=== PATIENT | female | born 1955 | race Caucasian/White ===

== ENCOUNTER 2019-08-22 17:09 | Emergency (ER) | payer OTHER ==
--- OUTSIDE RECORDS SUMMARY | 2019-08-22 17:11 | XMS REPORT ---
:1955 Author Organization [facility] Address [address] [place] [address] [place] [address] Care Team Providers Name Role Phone Unavailable Unavailable Unavailable Problems This patient has no known problems. Allergies, Adverse Reactions, Alerts This patient has no known allergies or adverse reactions. Medications This patient has no known medications.
--- OUTSIDE RECORDS SUMMARY | 2019-08-22 17:12 | XMS REPORT | Summary of Care ---
:1955 Author Organization [facility] Address [address] [place] [address] Care Team Providers Name Role Phone Arina Mckeon Primary Care Provider Encounter Details Date Type Department Care Team Description 05/18/2019 Orders Only [facility] Doctor Unassigned, No [address] [facility] [place] [address] [address] [place] [address] Allergies Active Allergy Reactions Severity Noted Date Comments Morphine Other - See comments 02/10/2016 Penicillins Rash 02/10/2016 Sulfa (Sulfonamide Antibiotics) Other - See comments 12/08/2017 documented as of this encounter (statuses as of 05/18/2019) Medications Medication Sig Dispensed Refills Start Date End Date Status DEXILANT 60 mg capsule 1 2016 Active estradiol (ESTRACE) 2 Take 1 mg by 0 12/26/2015 Active mg tablet mouth daily. lancets (LITE TOUCH 3 12/16/2015 Active LANCETS) [facility] XOPENEX HFA 45 3 12/24/2015 Active mcg/actuation inhaler LORazepam (ATIVAN) 1 mg 1 01/29/2016 Active tablet traZODone (DESYREL) 150 Take 150 mg by 2 11/15/2015 Active mg tablet mouth at bedtime. aspirin 81 mg chewable Take 81 mg by 0 Active tablet mouth daily. loratadine (CLARITIN Take by mouth. 0 Active LIQUI-GEL) 10 mg capsule ERGOCALCIFEROL, VITAMIN Take by mouth. 0 Active D2, (VITAMIN D ORAL) linaclotide (LINZESS) Take by mouth. 0 Active 290 mcg Cap BACLOFEN ORAL Take by mouth. 0 Active levothyroxine Take one tablet 102 tablet 1 05/12/2016 Active (SYNTHROID) 50 mcg Tuesday-Tuesday tabletIndications: and 1.5 tablet Hypothyroidism, on tuesday unspecified hypothyroidism type OXYCODONE HCL Take by mouth. 0 Active (OXYCODONE ORAL) antipyrine-benzocaine Place 2 Drops in 1 Bottle 0 10/16/2016 Active 5.4-1.4 % otic drops left ear every 4 (four) hours as needed for Pain (scale 4-6). ondansetron (ZOFRAN Take 1 tablet by 12 tablet 0 12/08/2017 Active ODT) 4 mg mouth every 8 disintegrating tablet (eight) hours as needed for Nausea and Vomiting (N/V). documented as of this encounter (statuses as of 05/18/2019) Active Problems Problem Noted Date Obesity (BMI 30-39.9) 10/16/2016 Hypothyroidism, unspecified hypothyroidism type 02/10/2016 Pre-diabetes 02/10/2016 documented as of this encounter (statuses as of 05/18/2019) Immunizations Name Administration Dates Next Due Td 10/16/2016 documented as of this encounter Social History Tobacco Use Types Packs/Day Years Used Date Former Smoker Alcohol Use Drinks/Week oz/Week Comments Not Asked 0 Standard drinks or equivalent 0.0 Sex Assigned at Date Recorded Not on file Job Start Date Occupation Industry Not on file Not on file Not on file Travel History Travel Start Travel End No recent travel history available. 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 Clinical Medical Kari Dow MD [address] [place] [phone] Arrived Laboratory 1, [facility] Health Maintenance Due Date Last Done Comments HEPATITIS C (HCV) SCREEN 1955 PAP SMEAR 1978 MAMMOGRAM 1997 COLONOSCOPY 2007 Zoster Recombinant Vaccine 2007 (SHINGRIX) (1 of 2) DTaP,Tdap,and Td Vaccines (1 - 10/17/2016 10/16/2016 Tdap) INFLUENZA VACCINE (#1) 2019 PNEUMOCOCCAL 0-64 YEARS COMBINED Aged Out No longer eligible based on SERIES patient's age to complete this topic documented as of this encounter Procedures Procedure Name Priority Date/Time Associated Diagnosis Comments ASSIGNMENT OF BENEFITS Routine 05/18/2019 2:42 PM CDT documented in this encounter Results Not on filedocumented in this encounter Insurance Payer Benefit Plan / Subscriber ID Effective Dates Phone Address Type Group MEDICARE MEDICARE PART xxxxxxxxxxx 2012-Barbara [phone] [address] Medicare A & B t 2 [id number] [place] [id number] [facility] MEDICAID OF xxxxxxxxx 2015-Barbara [phone] [address] Medicaid [place] t 0 [id number] [place] [address] documented as of this encounter
--- OUTSIDE RECORDS SUMMARY | 2019-08-22 17:12 | XMS REPORT | Summary of Care ---
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 Kari Dow MD [address] [place] [address] Soriano's esophagus with dysplasia (Primary Dx); Phlebotomy 1, [facility] Lab Seasonal allergic rhinitis due to pollen; [facility]-[place] Hyperlipidemia, unspecified hyperlipidemia type; [address] [place] [address] CKD (chronic kidney disease) stage 3, GFR 30-59 ml/min ; Hypothyroidism, [place] [address] Allergies Active Allergy Reactions Severity Noted Date [...] TOUCH 3 12/16/2015 Active LANCETS) 30 gauge Misc XOPENEX HFA 45 3 12/24/2015 Active mcg/actuation [...] filedocumented in this encounter Plan of Treatment Name Type Priority Associated Diagnoses Date/Time CBC WITH DIFF LAB Routine Soriano's esophagus with 05/18/2019 3:10 PM dysplasia CDT Seasonal allergic rhinitis due to pollen Hyperlipidemia, unspecified hyperlipidemia type CKD (chronic kidney disease) stage 3, GFR 30-59 ml/min Hypothyroidism, unspecified type LIPID PANEL LAB Routine Soriano's esophagus with 05/18/2019 3:10 PM ([id number])(TOTAL dysplasia CDT CHOLESTEROL, Seasonal allergic rhinitis TRIGLYCERIDES, HDL) due to pollen Hyperlipidemia, unspecified hyperlipidemia type CKD (chronic kidney disease) stage 3, GFR 30-59 ml/min Hypothyroidism, unspecified type COMP. METABOLIC PANEL LAB Routine Soriano's esophagus with 05/18/2019 3: 10 PM (40495) dysplasia CDT Seasonal allergic rhinitis due to pollen Hyperlipidemia, unspecified hyperlipidemia type CKD (chronic kidney disease) stage 3, GFR 30-59 ml/min Hypothyroidism, unspecified type THYROID STIMULATING LAB Routine Soriano's esophagus with 05/18/2019 3:10 PM HORMONE dysplasia CDT Seasonal allergic rhinitis due to pollen Hyperlipidemia, unspecified hyperlipidemia type CKD (chronic kidney disease) stage 3, GFR 30-59 ml/min Hypothyroidism, unspecified type FREE T4 LAB Routine Soriano's esophagus with 05/18/2019 3:10 PM dysplasia CDT Seasonal allergic rhinitis due to pollen Hyperlipidemia, unspecified hyperlipidemia type CKD (chronic kidney disease) stage 3, GFR 30-59 ml/min Hypothyroidism, unspecified type CBC WITH DIFFERENTIAL LAB Routine Soriano's esophagus with 05/18/2019 3: 10 PM dysplasia CDT Seasonal allergic rhinitis due to pollen Hyperlipidemia, unspecified hyperlipidemia type CKD (chronic kidney disease) stage 3, GFR 30-59 ml/min Hypothyroidism, unspecified type Health Maintenance Due Date Last Done Comments HEPATITIS C (HCV) SCREEN 1955 PAP SMEAR 1978 MAMMOGRAM 1997 COLONOSCOPY 2007 Zoster Recombinant Vaccine 2007 (SHINGRIX) (1 of 2) DTaP,Tdap,and Td Vaccines (1 - 10/17/2016 10/16/2016 Tdap) INFLUENZA VACCINE (#1) 2019 PNEUMOCOCCAL 0-64 YEARS COMBINED Aged Out No longer eligible based on SERIES patient's age to complete this topic documented as of this encounter Results Not on filedocumented in this encounter Visit Diagnoses Diagnosis Soriano's esophagus with dysplasia - Primary Soriano's esophagus Seasonal allergic rhinitis due to pollen Hyperlipidemia, unspecified hyperlipidemia type CKD (chronic kidney disease) stage 3, GFR 30-59 ml/min Chronic kidney disease, Stage III (moderate) Hypothyroidism, unspecified type documented in this encounter Insurance Payer Benefit Plan / Subscriber ID Effective Dates Phone Address Type Group MEDICARE MEDICARE PART xxxxxxxxxxx 2012-Barbara [phone] [address] Medicare A & B t 2 [id number] [place] [address] [facility] MEDICAID OF xxxxxxxxx 2015-Barbara [phone] [address] Medicaid [place] t 0 [id number] [place] [address] documented as of this encounter
--- NOTE | 2019-08-22 17:56 | RAD REPORT ---
EXAM DESCRIPTION: RAD - Chest Single View - 08/22/2019 5:48 pm CLINICAL HISTORY: PAIN Chest pain. COMPARISON: Abdomen 1 View (KUB) dated 10/02/2018; Abdomen 1 View (KUB) dated 07/28/2017; Chest Pa And Lat (2 Views) dated 10/11/2016; Chest Pa And Lat (2 Views) dated 06/11/2016 FINDINGS: Portable technique limits examination quality. The lungs are grossly clear. The heart is normal in size. No displaced fractures. IMPRESSION: No acute intrathoracic process suspected.
--- NOTE | 2019-08-22 18:08 | RAD REPORT ---
EXAM DESCRIPTION: CT - Head Brain Wo Cont - 08/22/2019 5:54 pm CLINICAL HISTORY: htn Headache, hypertension, blurry vision COMPARISON: <Comparisons> TECHNIQUE: All CT scans are performed using dose optimization technique as appropriate and may inclu de automated exposure control or mA/KV adjustment according to patient size. FINDINGS: No intracranial hemorrhage, hydrocephalus or extra-axial fluid collection.No areas of brai n edema or evidence of midline shift. The paranasal sinuses and mastoids are clear. The calvarium is intact. IMPRESSION: No acute intracranial abnormality.
[2019-08-22 18:25] LABS: Absolute Lymphocytes (CBC) 5.2 K/uL (0.7-4.9); Basophils % 0.4 % (0-1.3); Hematocrit 44.6 % (36.0-45.0); Lymphocytes % 48.7 % (15.3-44.8); MPV 10.1 fL (7.6-11.3); RBC Red Blood Cell Count 4.93 M/uL (3.86-4.86)
[2019-08-22 18:29] LABS: Protime INR 0.96
[2019-08-22 18:55] LABS: AST/SGOT 24 U/L (15-37); Albumin 3.6 g/dL (3.4-5.0); Alkaline Phosphatase 111 U/L (45-117); BUN Blood Urea Nitrogen 24 mg/dL (7-18); Bicarbonate 27 mmol/L (21-32); Bilirubin Direct < 0.1 mg/dL (0-0.2); Bilirubin Total 0.2 mg/dL (0.2-1.0); Glucose Level 75 mg/dL (74-106); Magnesium 2.2 mg/dL (1.8-2.4); NT PRO-BNP 61 pg/mL (<125); Potassium 3.8 mmol/L (3.5-5.1); Protein, Total 6.9 g/dL (6.4-8.2); Sodium Level 141 mmol/L (136-145); Troponin (Emerg Dept Use Only) < 0.02 ng/mL (0.0-0.045)
[2019-08-22 18:56] LABS: ALT/SGPT 73 U/L (12-78)
[2019-08-22] MEDS ORDERED: KETOROLAC 30 MG/ML INJ ONE (19:50)
--- NOTE | 2019-08-22 21:26 | EDPHYS ---
Physician Documentation [facility] Name: Josselyn Delarosa Age: 64 yrs Sex: Female : 1955 Arrival Date: 08/22/2019 Time: 17:11 Bed 5 Private MD: ED Physician Darryl العلي HPI: 08/22 19:48 This 64 yrs old Female presents to ER via Ambulatory with complaints of snw Vision Problem, High Blood Pressure, Numbness Of Arm. 19:48 The patient presents to the emergency department with paresthesias of the a vision snw problem, left eye blindness. Onset: The symptoms/episode began/occurred 3 week(s) ago, and became persistent. Context: occurred at home, occurred while the patient was doing normal activity. Associated signs and symptoms: Pertinent positives: loss of vision, occasional dizziness, headache. Severity of symptoms: At their worst the symptoms were moderate. Patient's baseline: Neuro: alert and fully oriented, Motor: no deficits, Ambulation: walks without assistance. Current symptoms: visual disturbance, loss of vision, left eye. It is unknown whether or not the patient has had similar symptoms in the past. The patient has not recently seen a physician. Historical: - Allergies: 17:27 Morphine (Vomiting); hb 17:27 PENICILLINS; hb 17:27 Sulfa (Sulfonamide Antibiotics); hb 17:27 Enktlqf-Grw-Ggh Reductase Inhibitors; hb - PMHx: 17:27 Diverticulitis; Kidney stones; hb - PSHx: 17:27 Tonsillectomy; Hysterectomy; L foot x3; Adenoids; Tubal ligation; Appendectomy; L hb thumb; oral surgery; - Immunization history:: Adult Immunizations up to date. - Social history:: Smoking status: Patient uses tobacco products, smokes one-half pack cigarettes per day. - Ebola Screening: : No symptoms or risks identified at this time. ROS: 19:45 Constitutional: Negative for fever, chills, and weight loss, ENT: Negative for injury, snw pain, and discharge, Neck: Negative for injury, pain, and swelling, Cardiovascular: Negative for chest pain, palpitations, and edema, Respiratory: Negative for shortness of breath, cough, wheezing, and pleuritic chest pain, Abdomen/GI: Negative for abdominal pain, nausea, vomiting, diarrhea, and constipation, Back: Negative for injury and pain, : Negative for injury, bleeding, discharge, and swelling, MS/Extremity: Negative for injury and deformity, Skin: Negative for injury, rash, and discoloration, Psych: Negative for depression, anxiety, suicide ideation, homicidal ideation, and hallucinations. 19:45 Eyes: Positive for visual disturbance, of the iris of left eye. 19:45 Psych: Positive for occasional dizziness. Exam: 19:37 Constitutional: This is a well developed, well nourished patient who is awake, alert, snw and in no acute distress. Head/Face: Normocephalic, atraumatic. ENT: Nares patent. No nasal discharge, no septal abnormalities noted. Tympanic membranes are normal and external auditory canals are clear. Oropharynx with no redness, swelling, or masses, exudates, or evidence of obstruction, uvula midline. Mucous membranes moist. Neck: Trachea midline, no thyromegaly or masses palpated, and no cervical lymphadenopathy. Supple, full range of motion without nuchal rigidity, or vertebral point tenderness. No Meningismus. Chest/axilla: Normal chest wall appearance and motion. Nontender with no deformity. No lesions are appreciated. Cardiovascular: Regular rate and rhythm with a normal S1 and S2. No gallops, murmurs, or rubs. Normal PMI, no JVD. No pulse deficits. Respiratory: Lungs have equal breath sounds bilaterally, clear to auscultation and percussion. No rales, rhonchi or wheezes noted. No increased work of breathing, no retractions or nasal flaring. Abdomen/GI: Soft, non-tender, with normal bowel sounds. No distension or tympany. No guarding or rebound. No evidence of tenderness throughout. Back: No spinal tenderness. No costovertebral tenderness. Full range of motion. Skin: Warm, dry with normal turgor. Normal color with no rashes, no lesions, and no evidence of cellulitis. MS/ Extremity: Pulses equal, no cyanosis. Neurovascular intact. Full, normal range of motion. Psych: Awake, alert, with orientation to person, place and time. Behavior, mood, and affect are within normal limits. 19:37 Neuro: Orientation: is normal, Mentation: is normal, Memory: is normal, Gait: not tested. 19:45 Eyes: Pupils: no acute changes, equal, round, and reactive to light and accomodation, snw Extraocular movements: intact throughout, Conjunctiva: normal. Vital Signs: 17:24 BP 154 / 112; Pulse 79; Resp 16; Temp 98.1; Pulse Ox 100% ; Weight 91.17 kg; Height 5 hb ft. 6 in. (167.64 cm); Pain 5/10; 18:25 BP 137 / 74; Pulse 61; Resp 16; Pulse Ox 98% on R/A; iw 19:52 BP 138 / 83; Pulse 63; Resp 17 S; Pulse Ox 100% on R/A; jd3 20:58 BP 139 / 79; Pulse 62; Resp 18 S; Pulse Ox 99% on R/A; jd3 21:04 BP 139 / 73 Supine; Pulse 56; Resp 13; Pulse Ox 97% on R/A; mw2 21:06 BP 136 / 87 Sitting; Pulse 59; Resp 22; Pulse Ox 90% on R/A; mw2 21:08 BP 147 / 85; Pulse 71; Resp 34; Pulse Ox 99% on R/A; mw2 21:41 BP 128 / 88; Pulse 75; Resp 15; Temp 98.2; Pulse Ox 99% on R/A; rr5 17:24 Body Mass Index 32.44 (91.17 kg, 167.64 cm) hb Visual Acuity: 20:20 Left Eye Visual acuity 20/20, Pupil size 2 mm, Normal; Right Eye Visual acuity 20/20, rr5 Pupil size 2 mm, Normal; Without Lenses; patient complaining of blurry vision on left eye MDM: 17:44 Patient medically screened. snw 19:47 Data reviewed: vital signs, nurses notes. Data interpreted: Pulse oximetry: on room air snw is 98 %. Counseling: I had a detailed discussion with the patient and/or guardian regarding: the historical points, exam findings, and any diagnostic results supporting the discharge/admit diagnosis, the presence of at least one elevated blood pressure reading (>120/80) during this emergency department visit, lab results, radiology results, the need for outpatient follow up, for definitive care. 08/22 17:34 Order name: Basic Metabolic Panel; Complete Time: 19:01 snw 08/22 17:34 Order name: CBC with Diff; Complete Time: 18:28 snw 08/22 17:34 Order name: LFT's; Complete Time: 19:01 snw 08/22 17:34 Order name: Magnesium; Complete Time: 19:01 snw 08/22 17:34 Order name: NT PRO-BNP; Complete Time: 19:01 snw 08/22 17:34 Order name: PT-INR; Complete Time: 18:35 snw 08/22 17:34 Order name: Troponin (emerg Dept Use Only); Complete Time: 19:01 snw 08/22 17:34 Order name: XRAY Chest (1 view); Complete Time: 18:03 snw 08/22 17:34 Order name: EKG; Complete Time: 17:35 snw 08/22 17:34 Order name: Cardiac monitoring; Complete Time: 18:19 snw 08/22 17:34 Order name: EKG - Nurse/Tech; Complete Time: 18:19 snw 08/22 17:34 Order name: IV Saline Lock; Complete Time: 18:19 snw 08/22 17:35 Order name: CT Head Brain wo Cont; Complete Time: 18:23 snw 08/22 17:34 Order name: Labs collected and sent; Complete Time: 18:19 snw 08/22 17:34 Order name: O2 Per Protocol; Complete Time: 18:23 snw 08/22 17:34 Order name: O2 Sat Monitoring; Complete Time: 18:23 snw 08/22 19:51 Order name: Blood Pressure Recheck; Complete Time: 19:56 snw 08/22 19:51 Order name: Visual Acuity; Complete Time: 20:52 snw 08/22 20:46 Order name: Orthostatics; Complete Time: 21:08 snw Administered Medications: 19:52 Drug: TORadol - Ketorolac 15 mg Route: IVP; Site: right antecubital; jd3 20:50 Follow up: Response: No adverse reaction jd3 Disposition: 08/23 09:05 Co-signature as Attending Physician, Darryl العلي MD Available for consultation ps1 during the encounter in the ED. Signing chart for administrative purposes. . Disposition: 08/22/19 21:26 Discharged to Home. Impression: Visual disturbances, Essential (primary) hypertension. - Condition is Stable. - Discharge Instructions: Hypertension, Heart Disease Prevention, Steps to Quit Smoking, Smoking Hazards, How to Take Your Blood Pressure, Kahe-mr-Mzmg, DASH Eating Plan, Rehydration, Adult, Form - Blood Pressure Record Sheet. - Work release form, Medication Reconciliation Form, Thank You Letter, Antibiotic Education, Prescription Opioid Use form. - Follow up: Private Physician; When: 1 - 2 days; Reason: Recheck today's complaints, Continuance of care, Re-evaluation by your physician. Follow up: Martha Saenz MD; When: 1 week; Reason: Recheck today's complaints, Continuance of care. Signatures: Dispatcher [employer] EDMS Nery Snider, LICENSED PHYSICAL THERAPIST ASSISTANT-C LICENSED PHYSICAL THERAPIST ASSISTANT-Csnw Marcy Murphy, RN RN Seb Feliciano RN RN jd3 Darryl العلي MD MD [facility] Isaiah Castro RN RN rr5 Corrections: (The following items were deleted from the chart) 08/22 21:43 21:26 08/22/2019 21:26 Discharged to Home. Impression: Visual disturbances; Essential rr5 (primary) hypertension. Condition is Stable. Forms are Medication Reconciliation Form, Thank You Letter, Antibiotic Education, Prescription Opioid Use. Follow up: Private Physician; When: 1 - 2 days; Reason: Recheck today's complaints, Continuance of care, Re-evaluation by your physician. Follow up: Martha Saenz; When: 1 week; Reason: Recheck today's complaints, Continuance of care. snw
--- NOTE | 2019-08-22 21:26 | ER ---
Nurse's Notes [facility] Name: Josselyn Delarosa Age: 64 yrs Sex: Female : 1955 Arrival Date: 08/22/2019 Time: 17:11 Bed 5 Private MD: Diagnosis: Visual disturbances;Essential (primary) hypertension Presentation: 08/22 17:23 Presenting complaint: Blurred vision in left eye x 3 weeks, headache and neck pain that hb radiates to left arm today. Transition of care: patient was not received from another setting of care. Onset of symptoms was August 15, 2019. Risk Assessment: Do you want to hurt yourself or someone else? Patient reports no desire to harm self or others. Care prior to arrival: None. 17:23 Method Of Arrival: Ambulatory hb 17:23 Acuity: MELANIE 3 hb 20:58 Initial Sepsis Screen: Does the patient meet any 2 criteria? No. Patient's initial jd3 sepsis screen is negative. Does the patient have a suspected source of infection? No. Patient's initial sepsis screen is negative. Historical: - Allergies: 17:27 Morphine (Vomiting); hb 17:27 PENICILLINS; hb 17:27 Sulfa (Sulfonamide Antibiotics); hb 17:27 Vpbigkb-Yts-Azn Reductase Inhibitors; hb - PMHx: 17:27 Diverticulitis; Kidney stones; hb - PSHx: 17:27 Tonsillectomy; Hysterectomy; L foot x3; Adenoids; Tubal ligation; Appendectomy; L hb thumb; oral surgery; - Immunization history:: Adult Immunizations up to date. - Social history:: Smoking status: Patient uses tobacco products, smokes one-half pack cigarettes per day. - Ebola Screening: : No symptoms or risks identified at this time. Screenin:20 Abuse screen: Denies threats or abuse. Denies injuries from another. Nutritional iw screening: No deficits noted. Tuberculosis screening: No symptoms or risk factors identified. Fall Risk IV access (20 points). Assessment: 18:19 General: Appears in no apparent distress. Behavior is calm, cooperative. Pain: iw Complains of pain in head. Neuro: Level of Consciousness is awake, alert, obeys commands, Oriented to person, place, time, situation, Moves all extremities. Full function Reports blurred vision headache. Cardiovascular: Patient's skin is warm and dry. Respiratory: Respiratory effort is even, unlabored, Respiratory pattern is regular, symmetrical. Derm: Skin is intact, is healthy with good turgor. Musculoskeletal: Range of motion: intact in all extremities. 19:52 General: Appears in no apparent distress. uncomfortable, Behavior is calm, cooperative, jd3 appropriate for age. Pain: Complains of pain in head Quality of pain is described as aching, pressure. Neuro: Level of Consciousness is awake, alert, obeys commands, Oriented to person, place, time, situation, Moves all extremities. Full function Reports headache. Cardiovascular: Capillary refill < 3 seconds Patient's skin is warm and dry. Respiratory: Airway is patent Respiratory effort is even, unlabored, Respiratory pattern is regular, symmetrical. GI: No signs and/or symptoms were reported involving the gastrointestinal system. : No signs and/or symptoms were reported regarding the genitourinary system. EENT: No signs and/or symptoms were reported regarding the EENT system. Derm: Skin is intact, Skin is dry, Skin is normal, Skin temperature is warm. Musculoskeletal: Circulation, motion, and sensation intact. Range of motion: intact in all extremities. 21:00 Reassessment: Patient appears in no apparent distress at this time. Patient and/or rr5 family updated on plan of care and expected duration. Pain level reassessed. Patient is alert, oriented x 3, equal unlabored respirations, skin warm/dry/pink. 21:42 Reassessment: Patient appears in no apparent distress at this time. Patient is alert, rr5 oriented x 3, equal unlabored respirations, skin warm/dry/pink. discharge instruction given and explained to patient without complaints made. Patient states feeling better. Patient states symptoms have improved. Vital Signs: 17:24 BP 154 / 112; Pulse 79; Resp 16; Temp 98.1; Pulse Ox 100% ; Weight 91.17 kg; Height 5 hb ft. 6 in. (167.64 cm); Pain 5/10; 18:25 BP 137 / 74; Pulse 61; Resp 16; Pulse Ox 98% on R/A; iw 19:52 BP 138 / 83; Pulse 63; Resp 17 S; Pulse Ox 100% on R/A; jd3 20:58 BP 139 / 79; Pulse 62; Resp 18 S; Pulse Ox 99% on R/A; jd3 21:04 BP 139 / 73 Supine; Pulse 56; Resp 13; Pulse Ox 97% on R/A; mw2 21:06 BP 136 / 87 Sitting; Pulse 59; Resp 22; Pulse Ox 90% on R/A; mw2 21:08 BP 147 / 85; Pulse 71; Resp 34; Pulse Ox 99% on R/A; mw2 21:41 BP 128 / 88; Pulse 75; Resp 15; Temp 98.2; Pulse Ox 99% on R/A; rr5 17:24 Body Mass Index 32.44 (91.17 kg, 167.64 cm) hb Visual Acuity: 20:20 Left Eye Visual acuity 20/20, Pupil size 2 mm, Normal; Right Eye Visual acuity 20/20, rr5 Pupil size 2 mm, Normal; Without Lenses; patient complaining of blurry vision on left eye ED Course: 17:11 Patient arrived in ED. mr 17:24 Triage completed. hb 17:27 Arm band placed on. hb 17:33 Nery Snider FNP-C is [facility]. snw 17:33 Darryl العلي MD is Attending Physician. snw 17:33 Syl Moore, MICK is Primary Nurse. iw 17:48 XRAY Chest (1 view) In Process Unspecified. EDMS 17:54 CT Head Brain wo Cont In Process Unspecified. EDMS 18:17 Initial lab(s) drawn, by me, sent to lab. EKG done, by ED staff, reviewed by Nery CARO. Inserted saline lock: 20 gauge in right antecubital area, using aseptic technique. Blood collected. 18:18 Patient has correct armband on for positive identification. Placed in gown. Bed in low mh5 position. Call light in reach. Side rails up X 1. Adult w/ patient. Warm blanket given. classroom monitor on. Pulse ox on. NIBP on. 18:19 Basic Metabolic Panel Sent. 5 18:19 CBC with Diff Sent. 5 18:19 LFT's Sent. 5 18:19 Magnesium Sent. 5 18:19 NT PRO-BNP Sent. 5 18:19 PT-INR Sent. 5 18:19 Troponin (emerg Dept Use Only) Sent. 5 20:58 No provider procedures requiring assistance completed. jd3 21:25 Martha Saenz MD is Referral Physician. snw 21:43 IV discontinued, intact, bleeding controlled, No redness/swelling at site. Pressure rr5 dressing applied. Administered Medications: 19:52 Drug: TORadol - Ketorolac 15 mg Route: IVP; Site: right antecubital; jd3 20:50 Follow up: Response: No adverse reaction jd3 Outcome: 21:26 Discharge ordered by . snw 21:43 Discharged to home ambulatory. rr5 21:43 Condition: stable 21:43 Discharge instructions given to patient, Instructed on discharge instructions, follow up and referral plans. Demonstrated understanding of instructions, follow-up care. 21:43 Patient left the ED. rr5 Signatures: Dispatcher [employer] EDMS Nery Snider, GABO-C BARBER STYLIST-Laurie Bee Irene, RN Marcy Quinonez RN RN hb Martinez, Maria Seb Luong RN RN jd3 [place], [facility] Isaiah Castro RN RN rr5 Corrections: (The following items were deleted from the chart) 17:27 17:23 Presenting complaint: Blurred vision in left eye x 3 weeks, headache and neck hb pain today. hb
[2019-08-22 23:27] VITALS: O2SAT 99
[2019-08-22 23:28] VITALS: BP 128/88; TEMP 98.2
--- NOTE | 2019-08-23 22:59 | EKG ---
Test Date: 2019-08-22 Test Time: 18:05:25 Moss Bleacher: HANS MEASUREMENT RESULTS: Intervals: Rate: 65 CA: 176 QRSD: 78 QT: 416 QTc: 432 [place]: P: 53 CA: 176 QRS: 65 T: 58 INTERPRETIVE STATEMENTS: Normal sinus rhythm Nonspecific T wave abnormality Abnormal ECG Compared to ECG 05/11/2016 17:34:16 T-wave abnormality now present Electronically Signed On 08-23-19 22:57:20 PROPERTY MANAGEMENT BOOKKEEPER by Kevin Busch
== END 2019-08-22 21:43 | disposition home or self-care (01) ==
LOC: ER 17:09
DX: H53.9 Unspecified visual disturbance (principal); I10 Essential (primary) hypertension; Z88.6 Allergy status to analgesic agent; Z88.0 Allergy status to penicillin; Z88.2 Allergy status to sulfonamides; Z88.8 Allergy status to other drugs, medicaments and biological substances
CPT/HCPCS: 36415; 70450; 71045; 80048; 80076; 83735; 83880; 84484; 85025; 85610; 93005; 96374; 99285